=== PATIENT | female | born 1945 | race Hispanic/Latino ===

== ENCOUNTER 2016-12-25 13:43 | Outpatient (CLI) | payer MEDICARE ==
[2016-12-25 16:30] LABS: Blood Urea Nitrogen 24 mg/dL (7-17)
--- NOTE | 2016-12-26 13:56 | Magnetic Resonance Report ---
MRI ABDOMEN WITHOUT AND WITH CONTRAST : 12/25/16 14:05:00 CLINICAL: Left renal mass. COMPARISON :None. TECHNIQUE: Axial T1 in phase and opposed phase, coronal and axial T2 and axial T2 fat sat sequences plus multiphase postcontrast T1 fat sat sequences plus thin and thick slab MRCP sequences on a 1.5 Alessia magnet. 12 cc of Multihance was injected intravenously for the contrast portion of the exam and consent was obtained prior to the administration of the contrast. FINDINGS: Normal liver size, contour and signal. No liver mass. A few tiny calculi layer dependently in the gallbladder. The bile ducts are normal. Normal stomach, duodenum and spleen. The pancreas is small but otherwise normal. Normal adrenal glands. Normal nondilated renal collecting systems and ureters. The left kidney is larger than the right and measures 12.6 cm in length. The right kidney measures 9.4 cm in length. Several small bilateral renal cysts but no solid mass. Left upper pole renal cysts measure 1.9 and 0.9 cm. A posterior exophytic cyst of the left upper pole measures 1.1 cm. It is less hyperintense on T2 than the other cysts but demonstrates no enhancement postcontrast. A single 4 mm right lower pole exophytic renal cyst. Normal aorta and inferior vena cava. No ascites. The small bowel and colon are unremarkable. No mass or lymphadenopathy. The bones and soft tissues are normal. IMPRESSION: 1. Small bilateral benign renal cysts. 2. No renal mass. 3. Cholelithiasis.
== END 2016-12-25 13:44 | disposition home or self-care (01) ==
LOC: MRI 13:43
PROVIDERS: ATTEND Urology
DX: D41.02 Neoplasm of uncertain behavior of left kidney (principal); K80.20 Calculus of gallbladder without cholecystitis without obstruction; N28.1 Cyst of kidney, acquired
CPT/HCPCS: 36415; 74183; 82565; 84520; A9577

== ENCOUNTER 2018-08-04 06:57 | Day surgery (SDC) | payer MEDICARE ==
[2018-08-04] MEDS ORDERED: LACTATED RINGERS 1,000 ML IV SCH (07:00)
[2018-08-04] MEDS ORDERED: TRANSDERM-SCOP TD ONE (07:21)
[2018-08-04] MEDS ORDERED: PEPCID IV ONE (07:21)
--- NOTE | 2018-08-04 07:31 | Anesthesia Day of Surgery ---
Anesthesia Day of Surgery - Day of Surgery Patient Examined: Yes Patient H&P Reviewed: Yes Patient is NPO: Yes
--- NOTE | 2018-08-04 07:32 | Anesthesia Consultation ---
Anesthesia Consult and Med Hx Date of service: 08/04/18 - Airway Anesthetic Teeth Evaluation: Good ROM Head & Neck: Adequate Mental/Hyoid Distance: Adequate Mallampati Class: Class II Intubation Access Assessment: Probably Good - Pulmonary Exam CTA: Yes - Cardiac Exam Cardiac Exam: RRR - Pre-Operative Health Status ASA Pre-Surgery Classification: ASA3 Proposed Anesthetic Plan: General (GERD controlled, DM, hx of seizures no meds, and PONV scop patch behind right ear) - Pulmonary Hx Smoking: No Hx Asthma: Yes (MILD- INHALER PRN) SOB: No Hx Pneumonia: No Hx Sleep Apnea: No (YAHIR PRE SCREEN LOW RISK) - Cardiovascular System Hx Hypertension: No - Central Nervous System Hx Seizures: Yes (X 1 WHILE PREGANT-NEVER PLACED ON MEDS) Hx Back Pain: Yes (CHRONIC WITH LEFT LEG PAIN) Hx Psychiatric Problems: Yes (Anxiety) - Gastrointestinal Hx Gastroesophageal Reflux Disease: Yes (mild, takes Nexium) - Endocrine Hx Renal Disease: Yes (nephritis) Hx Non-Insulin Dependent Diabetes: Yes (Diet controlled) - Hematic Hx Anemia: Yes (NOT RECENT) - Other Systems Hx Alcohol Use: Yes (OCCAS MIX DRINK) Hx Substance Use: No Hx Cancer: No Hx Obesity: No
[2018-08-04] MEDS ORDERED: DILAUDID IV PRN (08:00)
[2018-08-04] MEDS ORDERED: ZOFRAN IV PRN (08:00)
[2018-08-04] MEDS ORDERED: DIPRIVAN 10 MG/ML IV ONE (08:59)
[2018-08-04] MEDS ORDERED: ZOFRAN ONE (09:00)
[2018-08-04] MEDS ORDERED: DECADRON ONE (09:00)
[2018-08-04] MEDS ORDERED: ANCEF/STERILE WATER 2 GM/20 ML IV NR (09:00)
[2018-08-04] MEDS ORDERED: SUBLIMAZE ONE (09:01)
--- NOTE | 2018-08-04 09:07 | XRay Report ---
AP ABDOMEN: HISTORY: Right kidney stone. The renal shadows appear normal size, contour and position. An approximate 5 mm calcification overlies the superior left kidney. No obvious right nephrolithiasis. Right pelvic phleboliths are noted. The intestinal gas pattern is unremarkable. IMPRESSION: Left renal stone as described.
[2018-08-04] MEDS ORDERED: ROBINUL ONE (10:06)
--- NOTE | 2018-08-04 11:53 | Post Operative Note ---
Date of procedure: 08/04/18 Pre-op diagnosis: L renal stone Post-op diagnosis: same Findings: as above Procedure: left eswl Anesthesia: NOEMI Surgeon: KEIRA AGUIRRE Estimated blood loss: none Pathology: none Condition: stable Disposition: PACU
--- NOTE | 2018-08-04 11:54 | Discharge Summary ---
Short Stay Discharge Plan Activity: other (no straining ) Weight Bearing Status: Full Weight Bearing Diet: low fat, low cholesterol Special Instructions: other (inc fluids ) Additional Instructions: INCREASE ORAL FLUIDS. AVOID STRAINING.STRAIN ALL URINE. REMOVE SCOPOLAMINE PATCH BEHIND RIGHT EAR IN 24-72 HOURS=USE GLOVES AND WASH HANDS. Follow up with: CAMILLE KEN MD [Primary Care Provider] - 7 Days KEIRA AGUIRRE MD [Staff Physician] - 14 Days Forms: [facility] [facility]
--- NOTE | 2018-08-04 12:14 | Operative Report ---
PREOPERATIVE DIAGNOSIS: Left renal stone. POSTOPERATIVE DIAGNOSIS: Left renal stone. PROCEDURE: Left in situ lithotripsy. SURGEON: Liban Moreno MD ANESTHESIA: General. FINDINGS: This is a woman with stone in the left upper pole cel[place] and a history of stones. Stone was well localized and easily seen on the deck supervisor film and now presents for treatment. DESCRIPTION OF PROCEDURE: The patient was brought to operating room and placed the operating table. Following induction of anesthesia, stone was easily localized both in the AP and oblique image. Shocks were begun at 1 kV and increased to a maximum of 8 kV. We did a renal pause. The patient tolerated the procedure well and brought to recovery in stable condition. JOB# [id number] JD/REINALDO
--- NOTE | 2018-08-04 12:29 | Post Anesthesia Evaluation ---
- Post Anesthesia Evaluation Patient Participated: Yes Airway Patent: Yes Stable Respiratory Function: Yes Nausea/Vomiting: No Temp > 96.8F: Yes Pain Manageable: Yes Adequeate Hydration: Yes Anesthesia Complications: No
[2018-08-04 17:04] VITALS: BP 115/69
== END 2018-08-04 12:42 | disposition home or self-care (01) ==
LOC: OR 06:57
PROVIDERS: ATTEND Urology
DX: N20.0 Calculus of kidney (principal); I10 Essential (primary) hypertension; E78.00 Pure hypercholesterolemia, unspecified; J45.909 Unspecified asthma, uncomplicated; K21.9 Gastro-esophageal reflux disease without esophagitis; F32.9 Major depressive disorder, single episode, unspecified; F41.9 Anxiety disorder, unspecified; E11.9 Type 2 diabetes mellitus without complications; M19.90 Unspecified osteoarthritis, unspecified site; Z79.899 Other long term (current) drug therapy; Z91.040 Latex allergy status; Z98.890 Other specified postprocedural states; Z90.710 Acquired absence of both cervix and uterus; Z72.89 Other problems related to lifestyle; Z91.041 Radiographic dye allergy status; Z79.84 Long term (current) use of oral hypoglycemic drugs; Z98.42 Cataract extraction status, left eye; Z88.8 Allergy status to other drugs, medicaments and biological substances
CPT/HCPCS: 50590; 74018; 82803; 82962; J0690; J1100; J2405; J2704; J3010; J7120

== ENCOUNTER 2019-05-24 09:53 | Outpatient (CLI) | payer MEDICARE ==
--- NOTE | 2019-05-24 10:46 | Cat Scan Report ---
CT ABDOMEN AND PELVIS WITHOUT CONTRAST HISTORY: N20.2 KIDNEY STONE COMPARISON: None. TECHNIQUE: Axial CT images were obtained through the abdomen and pelvis without IV contrast. Sagittal and coronal reformatted images. All CT scans at this location are performed using CT dose reduction for ALARA by means of automated exposure control. FINDINGS: CT ABDOMEN: Lung Bases: Clear. Liver: There is moderate diffuse fatty infiltration throughout the liver. No obvious mass. No enlarge ment. Biliary: Cholecystectomy. Spleen: No significant abnormality. Unenlarged. Pancreas: No significant abnormality. Adrenals: No significant abnormality. Kidneys: 5 calyceal stones are identified in the inferior left kidney ranging from 3 mm to 9 mm in gr eatest dimension. No right nephrolithiasis. No ureteral stones or hydronephrosis. There are 3 cysts i n the superior left kidney measuring up to 2 cm. Smaller 1 cm cyst demonstrates mild hemorrhagic starkey ge. No right renal lesion. Lymphatics: No lymphadenopathy. Vasculature: No significant abnormality. Bowel/Peritoneum: No significant abnormality. No free air. No free fluid. The appendix is not confide ntly identified. CT PELVIS: : There is mild streak artifact in the pelvis secondary to right hip replacement. Hysterectomy starkey ges are suspected. The bladder and distal ureters are unremarkable. No pelvic mass or fluid collectio n. Osseous Structures: Mild osteopenia. Mild degenerative changes at L5-S1. No fracture or suspicious [place] lesion. Unremarkable appearance of the right hip replacement. Additional Findings: None IMPRESSION: Left nephrolithiasis as described above. No ureteral stones or hydronephrosis. Left renal cysts, one of which demonstrates hemorrhagic change. Hepatic steatosis. Cholecystectomy, hysterectomy in the assumed appendectomy. Signer Name: Fede Ackerman Jr, MD Signed: 05/24/2019 10:42 AM Workstation Name: [id number]
== END 2019-05-24 09:54 | disposition home or self-care (01) ==
LOC: CT 09:53
PROVIDERS: ATTEND Urology
DX: N20.2 Calculus of kidney with calculus of ureter (principal)
CPT/HCPCS: 74176